=== PATIENT | female | born 1940 | race Hispanic/Latino ===

== ENCOUNTER 2019-12-01 14:22 | Outpatient (CLI) | payer MEDICARE ==
--- NOTE | 2019-12-01 15:25 | XRay Report ---
XR hip 2-3V LT INDICATION / CLINICAL INFORMATION: LEFT HIP PAIN. COMPARISON: None available. FINDINGS: BONES/JOINT(S): No acute fracture or subluxation. Mild bilateral hip DJD. No focal bone lesions. Mild diffuse subjective osteopenia. SOFT TISSUES: No significant abnormality. ADDITIONAL FINDINGS: None. Signer Name: Aamir Khan MD Signed: 12/01/2019 3:20 PM Workstation Name: [id number]
== END 2019-12-01 14:23 | disposition home or self-care (01) ==
LOC: SPVIMAG 14:22
PROVIDERS: ATTEND Internal Medicine
DX: M16.0 Bilateral primary osteoarthritis of hip (principal); M85.88 Other specified disorders of bone density and structure, other site